=== PATIENT | male | born 1985 | race Caucasian/White ===

== ENCOUNTER → 2025-02-19 | Outpatient (CLI) | payer SELFPAY, OTHER ==
--- NOTE | 2025-02-19 18:00 | US_ITS ---
PROCEDURE: TESTICULAR WITH ARTERIAL FLOW 02/19/2025 REASON FOR EXAM: TESTICULAR PAIN TECHNIQUE: Schulte scale imaging of the scrotal contents. FINDINGS: RIGHT testicle: 4.2 x 3.4 x 2.5 Right epididymis: 1.3 x 1.4 by 1.1. Epididymal cyst measuring 1.1 x 1.1 x 1.0 cm Small right-sided hydrocele From LEFT testicle: 4.2 x 2.6 x 2.5 Left epididymis: 0.9 x 1.1 x 1.3 cm Small left-sided hydrocele Other findings: No hydrocele or large varicocele. Tubular ectasia of the bilateral epididymis. US/Testicular with Arterial Flow IMPRESSION: *Small bilateral hydrocele. *Epididymal cyst measuring 1.1 cm breast *Tubular ectasia of the bilateral epididymis *No acute intratesticular abnormality. Reading Location: [facility]
== END | disposition home or self-care (01) ==
LOC: US 17:00
PROVIDERS: PCP Family Medicine; Referring Provider Family Medicine; Visit Provider Family Medicine
DX: N50.3 Cyst of epididymis (principal)
CPT/HCPCS: 76870; 93976